=== PATIENT | male | born 1970 | race Asian ===

== ENCOUNTER → 2017-03-24 | Outpatient (CLI) | payer BC ==
[2017-03-24 10:37] LABS: ALT/SGPT 16 U/L (12-78); AST/SGOT 15 U/L (15-37); BLOOD UREA NITROGEN 14 mg/dl (7-18); BUN/CREATININE RATIO 12.5 (10-20); CALCIUM 8.7 mg/dl (8.5-10.1); CARBON DIOXIDE 30 mmol/L (21-32); CHLORIDE 109 mmol/L (98-107); GLUCOSE 87 mg/dl (70-99); SODIUM 145 mmol/L (136-145)
[2017-03-24 10:43] LABS: ALB/GLOB RATIO 1.2 (0.9-2); ALKALINE PHOSPHATASE 68 U/L (45-117); CHOLESTEROL 191 mg/dl (0-200); CHOLESTEROL/HDL RATIO 3.4; HDL CHOLESTEROL 57 mg/dl; LDL CHOLESTEROL CALCULATED 117 mg/dl; TRIGLYCERIDES 86 mg/dl (0-150); VERY LOW DENSITY LIPOPROT CALC 17 mg/dl
== END | disposition home or self-care (01) ==
LOC: C.LAB 08:20
PROVIDERS: ATTEND Family Medicine
DX: Z00.00 Encounter for general adult medical examination without abnormal findings (principal)